=== PATIENT | male | born 2000 | race Caucasian/White ===

== ENCOUNTER 2021-10-05 10:18 | Emergency (ER) | payer BC ==
[2021-10-05 10:20] VITALS: BP 134/59; PULSE 78; RESP 18; TEMP 98; BMI 27.3
[2021-10-05] MEDS ORDERED: KETOROLAC TROMETHAMINE 30 MG/1 ML VIAL IM ONE (11:27)
[2021-10-05] MEDS ORDERED: KETOROLAC TROMETHAMINE 30 MG/1 ML VIAL ONE (11:35)
== END 2021-10-05 14:42 | disposition home or self-care (01) ==
LOC: JERFT 10:18
PROC: 3E0233Z Introduction of Anti-inflammatory into Muscle, Percutaneous Approach (ICD-10-PCS; principal; 2021-10-05)
DX: M54.50 Low back pain, unspecified (principal)
CPT/HCPCS: 72131-TC; 99284-25